=== PATIENT | female | born 1995 | race Caucasian/White ===

== ENCOUNTER 2023-02-16 17:20 | Emergency (ER) | payer BC, SELFPAY ==
--- NOTE | 2023-02-16 17:25 | ED.SKABFB ---
HPI - Skin/Abscess/Foreign Bdy General Chief complaint: Skin/Abscess/Foreign Body Stated complaint: Skin Sore/Left Foot Time Seen by Provider: 02/16/23 17:52 Source: patient and RN notes reviewed Mode of arrival: ambulatory Limitations: no limitations History of Present Illness HPI narrative: 27-year-old female presents with concern for redness, warmth to the foot. Reports she noticed this morning. Reports it is painful to touch. She denies fever, body aches, chills MD complaint: discoloration Related Data Allergies Allergy/AdvReac Type Severity Reaction Status Date / Time buspirone Allergy Severe Vomiting Verified 02/16/23 17:41 guaifenesin [From Robitussin] Allergy Vomiting Verified 02/16/23 17:41 prednisone Allergy Nausea Verified 02/16/23 17:41 Review of Systems Review of Systems: CONSTITUTIONAL: Denies malaise, chills, sweats, or fever. EYES: Denies visual changes, redness, or discharge. CARDIOVASCULAR: Denies chest pain, palpitations, or edema. RESPIRATORY: Denies cough or dyspnea. SKIN: Denies rash or itching. MUSCULOSKELETAL: Reports redness, warmth, tenderness to the left foot NEUROLOGIC: Denies numbness, weakness All systems reviewed & are unremarkable except as noted in HPI and below PMFSH Past Medical History Medical History (Updated 02/16/23 @ 18:00 by Mile Basilio NP) Anemia Anxiety Arthritis Bipolar 1 disorder, depressed Chronic GERD Gastroesophageal reflux disease Migraine Psoriasis Family History Family History Grandparent Hypertension Cerebrovascular accident Other Asthma Carcinoma of colon Social History Social History (Updated 01/29/21 @ 10:02 by Tiffanie Barr CMA) Smoking packs per day: 0.25 Smoking cigarettes per day: 5.0 Years smoked: 6 Smoking pack-years: 1.50 Smoking status: Current every day smoker Alcohol intake: never Substance use: former Comments At time of signature, agree with nursing past medical, surgical, social and family history. There is no relevant family history pertinent to the presenting complaint Exam Narrative: GENERAL: Well-appearing, well-nourished, and in no acute distress. HEAD: Normocephalic, atraumatic. EYES: PERRLA, conjunctivae clear, and EOMI. ENT: Mucous membranes moist. Oropharynx without edema, erythema or lesions. NECK: Supple. No lymphadenopathy CHEST: Clear to auscultation. No respiratory distress. HEART: Regular rate and rhythm. SKIN: Warm, dry. Erythema, tenderness, warmth approximately 9 cm x 3 cm noted to the medial left foot NEURO: Alert and oriented x3. PSYCH: Normal mood and affect Course Course Emergency Course: Patient is aware of diagnosis, understands and agrees to treatment plan. Anticipatory guidance given. Patient agrees to follow-up as directed and is aware of reasons to seek care at the emergency department. Portions of this record may have been created with voice recognition software Level of Care: Express Care Visit Vital Signs Vital signs: Reviewed. MDM - Skin/Abscess/Foreign Bdy MDM Narrative Medical decision making narrative: Does not appear at this time to be erythema multiforme, bullous, SJS, TEN; no evidence at this time to suggest RMSF, NSTI, endocarditis or Lyme disease; patient looks well, nontoxic and is tolerating oral intake; no neurologic signs or symptoms; no headache, photophobia or neck pain; afebrile. Patient does not have history of of penetrating trauma, laceration, blunt trauma, recent surgery, immunosuppression, malignancy, obesity, alcoholism, corticosteroid use. Discussed the importance of follow-up, patient agrees; question, cellulitis versus necrotizing soft tissue infection versus abscess. Lab Data Attestation: I reviewed the patient's lab results. Critical Care Time Critical Care Time Critical Care Time: No Discharge Plan Discharge Clinical Impression: Cellulitis Patient Dispos
[2023-02-16 17:34] VITALS: BP 143/80; PULSE 72; RESP 14; TEMP 36.3; O2SAT 100
== END 2023-02-16 18:05 | disposition home or self-care (01) ==
PROVIDERS: Emergency Provider Nurse Practitioner; PCP Internal Medicine
DX: L03.116 Cellulitis of left lower limb (principal); F17.210 Nicotine dependence, cigarettes, uncomplicated
CPT/HCPCS: 99213; G0463

== ENCOUNTER 2024-03-09 19:28 | Emergency (ER) | payer BC, SELFPAY ==
--- NOTE | 2024-03-09 19:42 | ED.SKABFB ---
HPI - Skin/Abscess/Foreign Bdy General Chief complaint: Wound/Laceration Stated complaint: Leg Sore/Irritation Time Seen by Provider: 03/09/24 19:44 Source: patient and RN notes reviewed Mode of arrival: ambulatory Limitations: dementia History of Present Illness HPI narrative: 28-year-old female presents with concern for redness tenderness, swelling with prelim blisters to the left lower leg. She reports history of poor circulation. She reports she noticed what she thought were blisters 4-5 days ago, and they are now draining with redness, tenderness, swelling. She denies general malaise or fever. MD complaint: other (Redness) Related Data Allergies Allergy/AdvReac Type Severity Reaction Status Date / Time buspirone Allergy Severe Vomiting Verified 03/09/24 19:50 guaifenesin [From Robitussin] Allergy Vomiting Verified 03/09/24 19:50 prednisone Allergy Nausea Verified 03/09/24 19:50 Review of Systems Review of Systems: CONSTITUTIONAL: Denies malaise, chills, sweats, or fever. EYES: Denies redness, or discharge. ENT: Denies rhinorrhea, congestion, swollen lips, swollen tongue CARDIOVASCULAR: Denies chest pain, palpitations, or edema. RESPIRATORY: Denies cough or dyspnea. GASTROINTESTINAL: Denies abdominal pain, nausea, vomiting SKIN: Reports redness, swelling, open skin with purulent discharge to the left lower extremity. Denies bullae, numbness, pain beyond proportion MUSCULOSKELETAL: Denies joint pain or myalgia. NEUROLOGIC: Denies headache. All systems reviewed & are unremarkable except as noted in HPI and below PMFSH Past Medical History Medical History (Updated 03/09/24 @ 19:55 by Mile Basilio NP) Anemia Anxiety Arthritis Bipolar 1 disorder, depressed Chronic GERD Gastroesophageal reflux disease Migraine Psoriasis Family History Family History Grandparent Hypertension Cerebrovascular accident Other Asthma Carcinoma of colon Social History Social History (Updated 01/29/21 @ 10:02 by Tiffanie Barr CMA) Smoking packs per day: 0.25 Smoking cigarettes per day: 5.0 Years smoked: 6 Smoking pack-years: 1.50 Smoking status: Current every day smoker Alcohol intake: never Substance use: former Comments At time of signature, agree with nursing past medical, surgical, social and family history. There is no relevant family history pertinent to the presenting complaint Exam Narrative: GENERAL: Well-appearing, well-nourished, and in no acute distress. HEAD: Normocephalic, atraumatic. EYES: PERRLA, conjunctivae clear ENT: Mucous membranes moist. NECK: Supple. No lymphadenopathy CHEST: Clear to auscultation. No respiratory distress. HEART: Regular rate and rhythm. SKIN: Warm, dry. Approximately 10 x 10 cm Erythema, induration, tenderness, warmth with several areas of open skin with purulent tissue bed noted to the left lower anterior extremity. No vesicles, bullae, necrosis, ecchymosis, crepitus noted. NEURO: Alert and oriented x3. PSYCH: Normal mood and affect Course Course Emergency Course: Patient is aware of diagnosis, understands and agrees to treatment plan. Anticipatory guidance given. Patient agrees to follow-up as directed and is aware of reasons to seek care at the emergency department. Portions of this record may have been created with voice recognition software Level of Care: Express Care Visit Vital Signs Vital signs: Reviewed. MDM - Skin/Abscess/Foreign Bdy MDM Narrative Medical decision making narrative: I evaluated this in the express care. History is obtained from patient who is an independent historian and physical exam was performed.? Available medical records were reviewed. ? Exam findings and relevant testing show no acute concerns or changes; patient is non-toxic appearing and is in no distress. No risk factors or findings concerning for epidural abscess, diskitis, vertebral osteomyel
[2024-03-09 19:51] VITALS: BP 119/83; PULSE 98; RESP 20; TEMP 36.6; O2SAT 97
== END 2024-03-09 20:12 | disposition home or self-care (01) ==
PROVIDERS: Emergency Provider Nurse Practitioner; PCP Internal Medicine
DX: L03.116 Cellulitis of left lower limb (principal); F17.210 Nicotine dependence, cigarettes, uncomplicated; M19.90 Unspecified osteoarthritis, unspecified site; K21.9 Gastro-esophageal reflux disease without esophagitis; L40.9 Psoriasis, unspecified
CPT/HCPCS: 99213; G0463

== ENCOUNTER 2024-06-07 08:15 | Emergency (ER) | payer BC, SELFPAY ==
--- NOTE | 2024-06-07 08:20 | ED_ITS ---
HPI - Skin/Abscess/Foreign Bdy General Chief complaint: Skin/Abscess/Foreign Body Stated complaint: Skin Sore/Foot and Leg Time Seen by Provider: 06/07/24 08:36 Source: patient and RN notes reviewed Mode of arrival: ambulatory Limitations: dementia History of Present Illness HPI narrative: 28-year-old female presents with concern for chronic left lower extremity wounds. Patient has been treated twice for wounds on this leg in the past at this clinic. She reports she was treated in February, the wounds remain scab until recently when the scabs ?fell off? when she took a tightness hands off. She reports since then the wounds have had drainage been open. She reports they are painful. She denies fever, aches, chills, sweats. MD complaint: other (Redness) Related Data Home Medications ?Medication ?Instructions ?Recorded ?Confirmed ?Last Taken ?Type buprenorphine 4 mg-naloxone 1 mg 2 film buccal DAILY 06/07/24 06/07/24 Unknown History sublingual film (Suboxone) Allergies Allergy/AdvReac Type Severity Reaction Status Date / Time buspirone Allergy Severe Vomiting Verified 06/07/24 08:30 guaifenesin (From Robitussin) Allergy Vomiting Verified 06/07/24 08:30 prednisone Allergy Nausea Verified 06/07/24 08:30 Review of Systems Review of Systems: CONSTITUTIONAL: Denies malaise, chills, sweats, or fever. EYES: Denies redness, or discharge. ENT: Denies rhinorrhea, congestion, swollen lips, swollen tongue CARDIOVASCULAR: Denies chest pain, palpitations, or edema. RESPIRATORY: Denies cough or dyspnea. GASTROINTESTINAL: Denies abdominal pain, nausea, vomiting SKIN: Reports redness, swelling, open wounds with yellow drainage to her left lower leg. Denies vesicles, bullae, numbness, pain beyond proportion MUSCULOSKELETAL: Denies joint pain or myalgia. NEUROLOGIC: Denies headache. All systems reviewed & are unremarkable except as noted in HPI and below PMFSH Past Medical History Medical History (Updated 06/07/24 @ 08:45 by Mile Basilio NP) Psoriasis Bipolar 1 disorder, depressed Migraine Chronic GERD Gastroesophageal reflux disease Arthritis Anxiety Anemia Family History Family History Grandparent Hypertension Cerebrovascular accident Other Asthma Carcinoma of colon Social History Social History (Updated 01/29/21 @ 10:02 by Tiffanie Barr [facility]) Smoking packs per day: 0.25 Smoking cigarettes per day: 5.0 Years smoked: 6 Smoking pack-years: 1.50 Smoking status: Current every day smoker Alcohol intake: never Substance use: former Comments At time of signature, agree with nursing past medical, surgical, social and family history. There is no relevant family history pertinent to the presenting complaint Exam Narrative: GENERAL: Well-appearing, well-nourished, and in no acute distress. HEAD: Normocephalic, atraumatic. EYES: PERRLA, conjunctivae clear ENT: Mucous membranes moist. NECK: Supple. No lymphadenopathy CHEST: Clear to auscultation. No respiratory distress. HEART: Regular rate and rhythm. SKIN: Warm, dry. Cutaneous inflammation with chronic edema and venous eczema noted to bilateral lower legs, left lower leg has for stasis ulcers with yellow drainage. No vesicles, bullae, necrosis, ecchymosis, crepitus noted. NEURO: Alert and oriented x3. PSYCH: Normal mood and affect Course Course Emergency Course: Daily Care of the lower legs including wearing compression stockings was discussed with patient, she was advised to follow-up with her primary care provider for ongoing evaluation of her stasis dermatitis and chronic ulcers. Patient is aware of diagnosis, understands and agrees to treatment plan. Anticipatory guidance given. Patient agrees to follow-up as directed and is aware of reasons to seek care at the emergency department. Portions of this record may have been created with voice recognition software Level of Care: Express Care Visit Vital Signs Vital signs: Reviewed. MDM - Skin/Abscess/Foreign Bdy MDM Narrative Medical decision making narrative: I evaluated this in the express care. History is obtained from patient who is an independent historian and physical exam was performed.? Available medical records were reviewed. ? Exam findings and relevant testing show no acute concerns or changes; patient is non-toxic appearing and is in no distress. No risk factors or findings concerning for epidural abscess, diskitis, vertebral osteomyelitis, cord compression, cauda equina, vertebral fracture or bone malignancy, AAA, or pyelonephritis. Patient instructed to consider further imaging and workup through their primary care physician as an outpatient if symptoms persist. Does not appear at this time to be erythema multiforme, bullous, SJS, TEN; no evidence at this time to suggest RMSF, NSTI, endocarditis or Lyme disease; patient looks well, nontoxic and is tolerating oral intake; no neurologic signs or symptoms; no headache, photophobia or neck pain; afebrile.? Patient does not have history of of penetrating trauma, laceration, blunt trauma, recent surgery, immunosuppression, malignancy, obesity, alcoholism, corticosteroid use.? Discussed the importance of follow-up, patient agrees; question, cellulitis versus necrotizing soft tissue infection versus abscess.?? Patient is appropriate for outpatient treatment and follow-up. Critical Care Time Critical Care Time Critical Care Time: No Discharge Plan Discharge Clinical Impression: Stasis leg ulcer Patient Disposition: Home, Self-Care Condition: Stable Instructions: Stasis Dermatitis (ED), Chronic Wounds (ED) Additional Instructions: Please follow up with your Primary Care Doctor within 48-72 hours - call for an appointment. Rest and elevate affected area; apply moist heat 3-4 times daily for 10-15 minutes. Follow instructions included for wound care. Take Motrin 600mg every 8 hours with food for pain. Please take Antibiotics as directed. If you experience any worsening redness, swelling, streaking (red lines), fever or chills please go to the ER Patient Language: Georgian Prescriptions: New sulfamethoxazole-trimethoprim 800-160 mg tablet 1 tablet PO Q12H 7 Days Qty: 14 0RF (DME) compression socks, x-large Misc See Rx Instructions .Route Qty: 2 0RF Rx Instructions: As directed No Action sulfamethoxazole-trimethoprim 800-160 mg tablet 1 tablet PO Q12H 7 Days Qty: 14 0RF buprenorphine-naloxone [Suboxone] 4-1 mg film 2 film buccal DAILY Rx Instructions: place 1 strip/tab under (each) side of tongue rizatriptan 10 mg tablet See Rx Instructions PO .COMPLEX Qty: 30 0RF Rx Instructions: take 1 tab at onset of headache; if no relief may repeat 1 tab after at least 2 hrs; max = 3 tabs/24 hr PO topiramate 25 mg capsule, sprinkle 25 mg PO DAILY Qty: 90 1RF alprazolam 0.25 mg tablet 0.25 mg PO DAILY PRN (Reason: anxiety) Qty: 14 0RF quetiapine 50 mg tablet 100 mg PO QHS Qty: 180 0RF Follow-up/Referrals: Jackson,Brooks Vu APRN [Primary Care Provider] - Time of Disposition: 08:46
[2024-06-07 08:25] VITALS: BP 125/64; PULSE 91; RESP 18; TEMP 36.7; O2SAT 100
== END 2024-06-07 08:50 | disposition home or self-care (01) ==
PROVIDERS: Emergency Provider Nurse Practitioner; PCP Nurse Practitioner
DX: I83.028 Varicose veins of left lower extremity with ulcer other part of lower leg (principal); L97.829 Non-pressure chronic ulcer of other part of left lower leg with unspecified severity; F17.210 Nicotine dependence, cigarettes, uncomplicated; L40.9 Psoriasis, unspecified; K21.9 Gastro-esophageal reflux disease without esophagitis; M19.90 Unspecified osteoarthritis, unspecified site
CPT/HCPCS: 99213; G0463

== ENCOUNTER 2025-04-07 14:47 | Emergency (ER) | payer BC, SELFPAY ==
--- OUTSIDE RECORDS SUMMARY | 2025-03-04 10:00 | XMS_ITS ---
Author Organization [facility] Address [address] [place] [address] Care Team Providers Care Knitter Mechanic Name Role Phone Ck Painting Primary Care Provider Jia Biggs [phone] REASON FOR VISIT MAT F/U Social History Sex Assigned At : Social History Observation Description Sex Assigned At Female Encounters Encounter Location Date Provider Diagnosis [address] [address] 03/04/2025 Jia Biggs Plan Of Treatment No Information Progress Notes * Jordy JOSEPHB:1995 ( 29 yo F)Acc No.[id number]:03/04/2025 UNLOCKED PROGRESS NOTE Patient: Anita MORROW Provider: Silvana Biggs, MSN, POOLROOM/POOLHALL MANAGER, PMHNP-BC :1995 A ge:29 Y S ex:Female Date:03/04/2025 Address:[address] [place], [place] [id number] Pcp:Ck Painting Subjective: * Chief Complaints: * 1 . MAT F/U. * Medical History: Objective: * Vitals: Assessment: Plan: * Treatment: * Care Plan Details* * Electronic signature of Isa Biggs on 04/07/2025 at 02:51 PM EMBEDDED SOFTWARE DESIGN ENGINEER Sign off status: Pending * Provider: Silvana Biggs, MSN, POOLROOM/POOLHALL MANAGER, PMHNP-BC Date: 1 Generated for Printing/Faxing/eTransmitting on: 06/07/2024 02:51 PM EMBEDDED SOFTWARE DESIGN ENGINEER
--- OUTSIDE RECORDS SUMMARY | 2025-03-05 10:00 | XMS_ITS ---
Author Organization [facility] Address [address] [place] [address] Care Team Providers Care Hospitalist Nocturnist Physician Name Role Phone Ck Painting Primary Care Provider Jia Biggs [phone] REASON FOR VISIT r/s from 03/04 Social History Sex Assigned At : Social History Observation Description Sex Assigned At Female Encounters Encounter Location Date Provider Diagnosis [address] [address] 03/05/2025 Jia Biggs Plan Of Treatment No Information Progress Notes * Girish JOSEPHRexB:1995 ( 29 yo F)Acc No.[id number]:03/05/2025 UNLOCKED PROGRESS NOTE Patient: Anita MORROW Provider: Silvana Biggs, MSN, THIRD GRADE TEACHER, PMHNP-BC :1995 A ge:29 Y S ex:Female Date:03/05/2025 Address:[address] [place], [place] [id number] Pcp:Ck Painting Subjective: * Chief Complaints: * 1 . R/s from 03/04. * Medical History: Objective: * Vitals: Assessment: Plan: * Treatment: * Care Plan Details* * Electronic signature of Isa Biggs on 04/07/2025 at 02:52 PM [employer] Sign off status: Pending * Provider: Silvana Biggs, MSN, THIRD GRADE TEACHER, PMHNP-BC Date: 1 Generated for Printing/Faxing/eTransmitting on: 06/07/2024 02:52 PM [employer]
--- NOTE | 2025-04-07 14:49 | ED_ITS ---
HPI - Skin/Abscess/Foreign Bdy General Chief complaint: Skin/Abscess/Foreign Body Stated complaint: Left Leg/Skin Sore Time Seen by Provider: 04/07/25 14:49 Source: patient Mode of arrival: ambulatory Limitations: no limitations History of Present Illness HPI narrative: Anita is a 29 year old female patient presenting to the clinic today with c/o a chronic wound to her left leg. She reports she was last seen for the wound on her leg in May of this year. Was given antibiotics at that time. states she has been seen in the emergency room and has seen a general practitioner one time for the wound. Has redness and swelling to the left lower extremity going up to the upper leg just below the knee. Wound hs very foul odor with a lot of slough tissue. History of IV drug abuse. Has been clean for 6 years. Currently takes Suboxone. Has been applying triple antibiotic ointment to the area Denies any fevers, chills, body aches. Related Data Home Medications ?Medication ?Instructions ?Recorded ?Confirmed ?Last Taken ?Type buprenorphine 4 mg-naloxone 1 mg 2 film buccal DAILY 0 06/07/24 06/07/24 Unknown History sublingual film (Suboxone) buprenorphine 8 mg-naloxone 2 mg film 04/07/25 Unknow n History sublingual film sennosides 8.6 mg tablet (senna) mg 04/07/25 Unknown History Allergies Allergy/AdvReac Type Severity Reaction Status Date / Time buspirone Allergy Severe Vomiting Verified 04/07/25 15:07 guaifenesin (From Robitussin) Allergy Vomiting Verified 04/07/25 15:07 prednisone Allergy Nausea Verified 04/07/25 15:07 Review of Systems Review of Systems: Pertinent positives per HPI. Patient denies any fever, chills, rash, headache, visual changes, dizziness, cough, runny nose, sore throat, shortness of breath, chest pain, palpitations, nausea, vomiting, diarrhea, constipation, abdominal pain, or any urinary issues. COUNT INCLUDES THE [facility] Past Medical History Medical History (Updated 04/07/25 @ 15:21 by Prince Barron APRN) Psoriasis Bipolar 1 disorder, depressed Migraine Chronic GERD Gastroesophageal reflux disease Arthritis Anxiety Anemia Family History Family History Grandparent Hypertension Cerebrovascular accident Other Asthma Carcinoma of colon Social History Social History Smoking packs per day: 0.25 Smoking cigarettes per day: 5.0 Years smoked: 6 Smoking pack-years: 1.50 Alcohol intake: never Substance use: former Comments At the time of my signature, I reviewed and agree with the nursing past medical, surgical, social, and family history. There is no relevant family history pertinent to the patient complaint. Exam Narrative: General: Well-developed, morbidly obese, in no apparent distress Head: Normocephalic, atraumatic. Cardio: Regular rate and rhythm, s1 and s2 normal, no murmur appreciated. Resp: Clear to auscultation bilaterally, no rhonchi, rales, wheezing or rubs. Integumentary: Pratt, warm, and dry, 19 x 14cm unstageable wound to the left anterior/lateral leg. Circumferential cellulitis from the left foot to just below the left knee. Area is erythemic and ttp. Slough tissue over the left wound. Course Course Emergency Course: Portions of this record may have been created with voice recognition software. Level of Care: Express Care Visit Vital Signs Vital signs: Vital signs reviewed Transfer Transfered to: [facility] Transportation: Other (Private car) Transfer rationale: Cellulitis, wound infection, r/o osteomyelitis. Accepting physician: Dr. Gaming Transfer comments: Father to drive. MDM - Skin/Abscess/Foreign Bdy MDM Narrative Medical decision making narrative: At the time of visit patient is resting in the examine chair. Patient appears to be nontoxic. C/o a chronic wound to her left leg. She reports she was last seen for the wound on her leg in May of this year. Was given antibiotics at that time. states she has been seen in the emergency room and has seen a general practitioner one time for the wound. Has redness and swelling to the left lower extremity going up to the upper leg just below the knee. Wound has very foul odor with a lot of slough tissue. History of IV drug abuse. Has been clean for 6 years. Currently takes Suboxone. Denies any fevers, chills, body aches. On exam patient has a [id number] unstageable wound to the left anterior/lateral leg. Circumferential cellulitis from the left foot to just below the knee. Area is erythemic and ttp. Slough tissue over the left wound. Plan: I recommend transfer to the ED for further evaluation for cellulitis, wound infection, possible osteomyelitis. Risk and benefits were discussed with the patient and she agrees to transfer to the ED. Patient would like to go to [facility] ER. Report was called to Radha REID for continuity of care. Dr. Gaming accepts patient for transfer. Patient father to take patient to the ED. Differential Diagnosis Differential diagnosis: Likely abscess of skin or subcutaneous tissue, cellulitis and other (Unstageable wound, osteomyelitis, sepsis, drug abuse) Discharge Plan Discharge Clinical Impression: Cellulitis of left leg, Leg wound, left Patient Disposition: Acute Care Hospital Condition: Stable Patient Language: Sami Prescriptions: No Action buprenorphine-naloxone [Suboxone] 4-1 mg film 2 film buccal DAILY Rx Instructions: place 1 strip/tab under (each) side of tongue (DME) compression socks, x-large Misc See Rx Instructions .Route Qty: 2 0RF Rx Instructions: As directed sennosides [senna] 8.6 mg tablet buprenorphine-naloxone 8-2 mg film rizatriptan 10 mg tablet See Rx Instructions PO .COMPLEX Qty: 30 0RF Rx Instructions: take 1 tab at onset of headache; if no relief may repeat 1 tab after at least 2 hrs; max = 3 tabs/24 hr PO topiramate 25 mg capsule, sprinkle 25 mg PO DAILY Qty: 90 1RF alprazolam 0.25 mg tablet 0.25 mg PO DAILY PRN (Reason: anxiety) Qty: 14 0RF quetiapine 50 mg tablet 100 mg PO QHS Qty: 180 0RF Follow-up/Referrals: UNKNOWN,DOCTOR [Non-Staff] Time of Disposition: 15:21 Quality NIHSS Nursing Documentation ED NIHSS nursing documentation: reviewed/agree
[2025-04-07 14:52] VITALS: BP 147/74; PULSE 80; RESP 18; TEMP 36.3; O2SAT 100
--- OUTSIDE RECORDS SUMMARY | 2025-04-07 14:52 | XMS_ITS | Clinical Summary ---
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 Indications: mood stabalizer Active hydrOXYzine (VISTARIL) 25 MG Capsule Take 1 Cap by mouth 3 times daily as needed for Anxiety. 20 Cap 8 Active Active Problems Problem Noted Date Diagnosed Date Polyarthralgia Pain in unspecified joint 016 Bipolar affective disorder 02/16/2016 Dysthymia 02/16/2016 Menometrorrhagia 02/16/2016 Social History Tobacco Use Types Packs/Day Years Used Date Smoking Tobacco: Every Day Cigarettes Smokeless Tobacco: Never Tobacco Cessation:Ready to Q uit: No; Counseling Given: Yes Alcohol Use Standard Drinks/Week Comments No 0 (1 standard drink = 0.6 oz pur e alcohol) Comments No Sex and Gender Information Value Date Recorded Sex Assigned at Not on file Legal Sex Female 12:25 AM CDT Gender Identity Not on file Sexual Orientation Not on file Last Filed Vital Signs Vital Sign Reading Time Taken Comments 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 Pulse 108 02/16/2016 2:20 PM CDT Temperature 37.1 C (98.8 F) 02/16/2016 2:20 PM CDT Respiratory Rate 18 02/16/2016 2:20 PM CDT Oxygen Saturation 98% 02/16/2016 2:20 PM CDT Inhaled Oxygen Concentration - - Weight 115.7 kg (255 lb) 02/16/2016 2:20 PM CDT Height 177.8 cm (5' 10) 02/16/2016 2:20 PM CDT Body Mass Index 36.59 02/16/2016 2:20 PM CDT Plan of Treatment Health Maintenance Due Date Last Done Comments Hepatitis C Virus (HCV) Screening 1994 TdaP Immunization 1994 Hepatitis B Immunization (1 of 3 - 19+ 3-dose series) 2013 Pap Smear 2015 Human Papillomavirus (HPV) Immunization (1 - 3-dose SCDM series) 2021 Cervical Cancer Screening (CCS) 2024 HPV/Cotest 2024 Influenza Immunization (#1) 2025 SARS-COV-2 Immunization (2024- season) 2025 Respiratory Syncytial Virus (RSV) Immunization (Adult) (1 - 1-dose 75+ series) 2069 Meningococcal Immunization (ACWY) Aged Out No longer eligible based on patient's age to complete this topic Pneumococcal Immunization Combined Aged Out No longer eligible based on patient's age to complete this topic Rotavirus Immunization Aged Out No lo nger eligible based on patient's age to complete this topic Care Teams Clicking Machine Operator Relationship Specialty Start Date End Date Provider, None [place] PCP - General 05/06/18
--- OUTSIDE RECORDS SUMMARY | 2025-04-07 14:52 | XMS_ITS | Clinical Summary ---
Author Organization [facility] Address [address] [place] [id number] Care Team Providers Care Sectionizer Name Role Phone Ck Painting MD Primary Care Provider [phone] Allergies No known active allergies Medications cyclobenzaprine (FLEXERIL) 10 mg tablet Take 1 tablet (10 mg total) by mouth every 8 (eight) hours as needed for muscle spasms. 12 tablet 9 Active ibuprofen (ADVIL,MOTRIN) 800 mg tablet Take 1 tablet (800 mg total) by mouth 3 (three) times a day. 21 tablet 9 Active buprenorphine-n aloxone (SUBOXONE) 8-[address] 1 Film under the tongue 2 (two) times a day for 4 days 8 Film 2 Active naloxone (NARCAN) 4 mg/actuation spray,non-aeros ol Administer 1 spray into affected nostril(s) as needed for opioid reversal Call 911. Administer a single spray in one nostril. Repeat every 3 minutes as needed if no or minimal response. 2 each 2 Active buprenorphine-n aloxone (SUBOXONE) 8-[address] 1 Film under the tongue daily for 6 doses 6 Film 3 Active Social History Tobacco Use Types Packs/Day Years Used Date Smoking Tobacco: Never Assessed Personal Safety Answer Date Recorded Have you ever been in or are you currently in a harmful physical or emotional relationship or is someone making you feel afraid or unsafe? 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 Gender Identity Not on file Sexual Orientation Not on file Last Filed Vital Signs Vital Sign Reading Time Taken Comments Blood Pressure 135/92 02/11/2023 2:24 PM CDT Pulse 76 02/11/2023 2:24 PM CDT Temperature 36.7 C (98.1 F) 02/11/2023 2:24 PM CDT Respiratory Rate 20 02/11/2023 2:24 PM CDT Oxygen Saturation 99% 02/11/2023 2:24 PM CDT Inhaled Oxygen Concentration - - Weight 158.8 kg (350 lb) 02/11/2023 12:11 PM CDT Height 180.3 cm (5' 11) 02/11/2023 12:11 PM CDT Body Mass Index 48.82 02/11/2023 12:11 PM CDT Plan of Treatment Health Maintenance Due Date Last Done Comments Cervical Cancer Screening 1994 Depression Screening 1994 Hepatitis C Screening 1994 Varicella Vaccines (2 of 2 - 2-dose childhood series) 1998 01/24/1998 Regular Well Visit/Exam 18-64 2012 DTaP/Tdap/Td Vaccine (7 - Td or Tdap) 01/06/2019 01/06/2009, 12/23/1998, 10/05/1995, Additional history exists Influenza Vaccine (#1) 2025 03/12/2010, 2009 Hepatitis B Screening Completed 1994 , 1994, 1994 HPV Vaccines Completed 08/07/2009, 02/27, 01/06/2009 Pneumococcal vaccine <65 Aged Out No longer eligible based on patient's age to complete this topic Insurance [facility] CHO[facility] PLUS [facility] Care Teams Sectionizer Relationship Specialty Start Date End Date Ck Painting MD [address] [place] [address] PCP - General Internal Medicine 02/11/23
--- OUTSIDE RECORDS SUMMARY | 2025-04-07 14:52 | XMS_ITS | Patient Health Record ---
Author Organization [facility]ly [facility], [facility] Address [address] [place] [address] Care Team Providers Care Park Worker Name Role Phone Painting Ck Primary Care Provider Alexandr Camacho Unavailable [phone] Brooks Paz Unavailable [phone] Rema Paulino Unavailable [phone] Nicole Rodriguez Unavailable Jia Biggs Unavailable [phone] Allergies Allergen (clinical drug ingredient) Drug/Non Drug Allergy documented on EMR Reaction Allergy Type Onset Date Status prednisone PredniSONE (Gurjit) nausea and vomiting Drug Allergy Active Results Component Value Reference Range Notes 12 Panel Urine Drug Screen Reviewed date:04/20/2024 10:05:14 AM Interpretation: Performing Lab: Notes/Report: THC POS NEYDA neg MOP (OPI) neg AMP neg MET neg BAR neg BZO neg MDMA neg MTD neg OXY neg PCP neg BUP POS 12 Panel Urine Drug Screen Reviewed date:07/19/2024 09:45:36 AM Interpretation: Performing Lab: Notes/Report: THC POS NEYDA neg MOP (OPI) neg AMP neg MET neg BAR neg BZO neg MDMA neg MTD neg OXY neg PCP neg BUP POS Medication Assisted Treatmen t (MAT) Buprenorphine, Norbuprenorphine, and Naloxone MS Confirmation, Urine Reviewed date:07/24/2024 08:29:03 AM Interpretation: Performing Lab:[facility], [address] [facility], Phone - [phone], Director - Radha Notes/Report: Creatinine 230 REFERENCE RANGE : Ref Range>=20 BUPRENORPHINE ++POSITIVE++ Buprenorphine 220 Norbuprenorphine >435 N/B Ratio >1.97 >=0.3 OPIATE ANTAGONIST ++POSITIVE++ Naloxone 98 Testing Threshold: buprenorphine, 1.0 ng/mL norbuprenorphine, 5.0 ng/mL naloxone, 10 ng/mL This test was developed and its performance characteristics determined by [facility]. It has not been cleared or approved by the Food and Drug Administration. 12 Panel Urine Drug Screen Reviewed date:06/06/2024 01:28:52 PM Interpretation: Performing Lab: Notes/Report: THC POS NEYDA neg MOP (OPI) neg AMP neg MET neg BAR neg BZO neg MDMA neg MTD neg OXY neg PCP neg BUP POS 12 Panel Urine Drug Screen Reviewed date:09/14/2024 10:10:18 AM Interpretation: Performing Lab: Notes/Report: THC POS NEYDA neg MOP (OPI) neg AMP neg MET neg BAR neg BZO neg MDMA neg MTD neg OXY neg PCP neg BUP POS 12 Panel Urine Drug Screen Reviewed date:10/23/2024 09:35:45 AM Interpretation: Performing Lab: Notes/Report: THC POS NEYDA neg MOP (OPI) neg AMP neg MET neg BAR neg BZO neg MDMA neg MTD neg OXY neg PCP neg BUP POS 14 Panel Urine Drug Screen Reviewed date:03/06/2025 01:28:03 PM Interpretation: Performing Lab: Notes/Report: THC neg NEYDA neg MOP (OPI) neg AMP neg MET neg BAR neg BZO neg MDMA neg MTD neg OXY neg PCP neg BUP POS TCA neg FTY neg 14 Panel Urine Drug Screen Reviewed date:12/21/2024 09:39:45 AM Interpretation: Performing Lab: Notes/Report: THC POS NEYDA neg MOP (OPI) neg AMP neg MET neg BAR neg BZO neg MDMA neg MTD neg OXY neg PCP neg BUP POS TCA neg FTY neg 14 Panel Urine Drug Screen Reviewed date:01/11/2025 01:56:36 PM Interpretation: Performing Lab: Notes/Report: THC neg NEYDA neg MOP (OPI) neg AMP neg MET neg BAR neg BZO neg MDMA neg MTD neg OXY neg PCP neg BUP POS TCA neg FTY neg Medication Assisted Treatmen t (MAT) Buprenorphine, Norbuprenorphine, and Naloxone MS Confirmation, Urine Reviewed date:12/27/2024 10:05:51 AM Interpretation: Performing Lab:[facility], [address] [place] [address], Phone - [phone], Director - PhrNazia Notes/Report: Creatinine 106 >=20 mg/dL REFERENCE RANGE : Ref Range>=20 BUPRENORPHINE ++POSITIVE++ Buprenorphine 119 Norbuprenorphine 571 N/B Ratio 4.80 >=0.3 OPIATE ANTAGONIST ++POSITIVE++ Naloxone 251 Testing Threshold: buprenorphine, 1.0 ng/mL norbuprenorphine, 5.0 ng/mL naloxone, 10 ng/mL This test was developed and its performance characteristics determined by [facility]. It has not been cleared or approved by the Food and Drug Administration. Reason For Referral No Information Medications Medication SIG (Take, Route, Frequency, Duration) Notes Start Date End Date Status Senna 8.6 MG 2 tablets at bedtime as needed Orally Once a day; Duration: 30 days As needed for constipation Active Calcipotriene 0.005 % 1 application Exte rnally Twice a day 05/19/2023 Active Suboxone 8-2 MG 1 film under the ton panda and allow to dissolve Sublingual three times a day 03/06/2025 Active Debrox 6.5 % 5 drops into affecte d ear UNTIL WAX RESOLVES Otic Twice a ay 04/21/2022 Active Ondansetron 4 MG 1 tablet on the tongue and allow to dissolve Orally Once a day As needed for nausea Active QUEtiapine Fumarate 300 MG 1 tablet Orally daily; Duration: 30 days at bedtime Active Ibuprofen 600 MG 1 tablet with food o r milk as needed Orally Three times a day Active Clobetasol Propionate 0.05 % 1 application TO RASH ON SCALP Externally Twice a day As needed Active Social History Tobacco Use: Social History Observation Description Date Details (start date - stop date) Current Smoker NA - NA Sex Assigned At : Social History Observation Description Sex Assigned At Female Alcohol Screen (Audit-C) Question Answer Notes Did you have a drink contain ing alcohol in the past year? Yes How often did you have a dri nk containing alcohol in the past year? Monthly or less (1 point) How many drinks did you have on a typical day when you were drinking in the past year? 3 or 4 drinks (1 point) How often did you have 6 or more drinks on one occasion in the past year? Less than monthly (1 point) Points 3 Interpretation Positive PRAPARE Question Answer Notes Date Completed/Updated: 01/27/2024 What is your current housing situation? I have h ousing Are you worried about losing your housing? No What is the highest level of school that you have finished? More than high school What is your current work situation? Unemployed and seeking work In the past year, have you o r any family members you live with been unable to get any of the following when it was really needed? Check all that apply I do not have problems meeting my needs Has lack of transportation k ept you from medical appointments, meetings, work or from getting things needed for daily living? Yes, it has kept me from medical appointments or from getting my medications,Yes, it has kept me from non-medical meetings, appointments, work, or getting things needed for daily living How often do you see or talk to people that you care about and feel close to? (For example: talking to friends on the phone, visiting friends or family, going to scientologist or club meetings) More than 5 times a week How stressed are you? Stress is when someone feels tense, nervous, anxious, or can\t sleep at night because their mind is troubled Somewhat In the past year have you sp ent more than 2 nights in a row in a intermediate, long-term, fdc center, or juvenile correctional facility? No Are you a refugee? No What country are you from? [place] Do you feel physically and e motionally safe where you currently live? Yes In the past year, have you b een afraid of your partner or ex-partner? No PRAPARE Score: 6 Tobacco Control (Standard) Question Answer Notes Tobacco use: Current smoker Problems Problem Type SNOMED Code ICD Code Onset Dates Problem Status W/U Status Risk Notes Problem Morbid obesity (disorder) (121963064) Morbid (severe) obesity due to excess calories (E66.01) Active confirmed Problem Vitamin D deficiency (26655722) Vitamin D deficiency (E55.9) Active confirmed Problem Psoriasis (2791103) Psoriasis (L40.9) Active co nfirmed Problem Overweight (898937751) Over weight (E66.3) Active confirmed Problem Chronic fatigue syndrome (28841337) Chronic fatigue (R53.82) Active confirmed Problem Insomnia (225249187) Insomnia, unspecified type (G47.00) Active confirmed Problem Bipolar disorder (56581681) Bipolar affective disorder, remission status unspecified (F31.9) Active confirmed Problem Opioid use disorder (7569164460) Opioid use disorder (F11.99) Active confirmed Problem Tobacco user (944405606) Nicotine dependence with current use (F17.200) Active confirmed Problem Gastroesophageal reflux disease (597269303) Gastroesophageal reflux disease, unspecified whether esophagitis present (K21.9) Active confirmed Vital Signs Heart Rate 89 /min 03/06/2025 Temperature 98.2 degrees Fahrenheit 12/21/2024 Respiratory Rate 16 /min 03/06/2025 Oximetry 98 % 03/06/2025 Blood pressure diastolic 84 mm Hg 03/06/2025 Height 71in in 03/06/2025 Blood pressure systolic 122 mm Hg 03/06/2025 Weight 307.6lbs lbs 03/06/2025 BMI 42.9 kg/m2 03/06/2025 Encounters Encounter Location Date Provider Diagnosis [address] [place] [address] 04/20/2024 Brooks Paz Opioid use disorder F11.99 ; Bipolar affective disorder, remission status unspecified F31.9 ; Arthralgia M25.50 ; Morbid (severe) obesity due to excess calories E66.01 ; Nutritional counseling Z71.3 and Nicotine dependence, unspecified, uncomplicated F17.[address] [place] [address] 06/06/2024 Jia Biggs Opioid use disorder F11.[address] [place] [address] 07/19/2024 Jia Szlufik Opioid use disorder F11.[address] [place] [address] 09/14/2024 Alexandr Camacho Opioid use disorder F11.99 ; Morbid (severe) obesity due to excess calories E66.01 and Nicotine dependence with current use F17.[address] [place] [address] 10/23/2024 Jia Szlufibharath Opioid use disorder F11.99 and Over weight E66.[address] [place] [address] 12/21/2024 Jia Szlufibharath Opioid use disorder F11.99 and Over weight E66.3 [facility] [address] [place] [address] 01/11/2025 Nicole Rodriguez Opioid use disorder F11.[address] [place] [address] 03/06/2025 Jia Monzonlufik Opioid use disorder F11.99 ; Encounter for immunization Z23 and Over weight E66.[address] [place] [address] 04/09/2024 Ck Painting Opioid use disorder F11.[address] [place] [address] 05/24/2024 Brooks Paz Opioid use disorder F11.[address] [place] [address] 07/09/2024 Jia Biggs Opioid use disorder F11.99 [facility] [address] [place] [address] 08/24/2024 Jia Monzonlufik Opioid use disorder F11.99 [facility] [address], [place] [address] 10/09/2024 Ck Painitng Bipolar affective disorder, remission status unspecified F31.[address] [place] [address] 11/23/2024 Rema Paulino Opioid use disorder F11.[address] [place] [address] 02/27/2025 Jia Biggs Assessments Encounter Date Diagnosis (ICD Code) Assessment Notes Treatment Notes Treatment Clinical Notes Section Notes 04/09/2024 Opioid use disorder (ICD-10 - F11.99) 04/20/2024 Opioid use disorder (ICD-10 - F11.99) 05/24/2024 Opioid use disorder (ICD-10 - F11.99) 06/06/2024 Opioid use disorder (ICD-10 - F11.99) 07/09/2024 Opioid use disorder (ICD-10 - F11.99) 07/19/2024 Opioid use disorder (ICD-10 - F11.99) 08/24/2024 Opioid use disorder (ICD-10 - F11.99) 09/14/2024 Morbid (severe) obesity due to excess calories (ICD-10 - E66.01) 09/14/2024 Opioid use disorder (ICD-10 - F11.99) 10/09/2024 Bipolar affective disorder, remission status unspecified (ICD-10 - F31.9) 10/23/2024 Over weight (ICD-10 - E66.3) 10/23/2024 Opioid use disorder (ICD-10 - F11.99) 11/23/2024 Opioid use disorder (ICD-10 - F11.99) 12/21/2024 Over weight (ICD-10 - E66.3) 12/21/2024 Opioid use disorder (ICD-10 - F11.99) Inconsistent follow-up with monthly fills, frequent bridge fills *Increase frequency of in-person follow-up a this time 01/11/2025 Opioid use disorder (ICD-10 - F11.99) 03/06/2025 Encounter for immunization (ICD-10 - Z23) Ordered per standing orders for administering influenza vaccine to adults. 04/20/2024 Bipolar affective disorder, remission status unspecified (ICD-10 - F31.9) 03/06/2025 Opioid use disorder (ICD-10 - F11.99) 04/20/2024 Arthralgia (ICD-10 - M25.50) 03/06/2025 Over weight (ICD-10 - E66.3) 09/14/2024 Nicotine dependence with current use (ICD-10 - F17.200) 04/20/2024 Morbid (severe) obesity due to excess calories (ICD-10 - E66.01) 04/20/2024 Nutritional counseling (ICD-10 - Z71.3) 04/20/2024 Nicotine dependence, unspecified, uncomplicated (ICD-10 - F17.200) 06/06/2024 Other Patient agrees to take medication as prescribed. Discussed medication side effects, adverse effects, risks, benefits, as well as interactions. Encouraged non-use of opioids and other illicit substances. Has naloxone. Discontinuing buprenorphine increases the risk of overdose upon return to illicit opioid use. Use of alcohol or benzodiazepines with buprenorphine increases the risk of overdose and . Education provided about safe storage of medications. Encouraged participation in recovery groups/counseling services. Contact office with questions or concerns. 07/19/2024 Other Patient agrees to take medication as prescribed. Discussed medication side effects, adverse effects, risks, benefits, as well as interactions. Encouraged non-use of opioids and other illicit substances. Has naloxone. Discontinuing buprenorphine increases the risk of overdose upon return to illicit opioid use. Use of alcohol or benzodiazepines with buprenorphine increases the risk of overdose and . Education provided about safe storage of medications. Encouraged participation in recovery groups/counseling services. Contact office with questions or concerns. 09/14/2024 Other Discussed medication side effects, adverse effects, risks, benefits, as well as interactions. Encouraged non-use of opioids. Has naloxone. Recommended participation in recovery groups and/or counseling services. May contact office with questions or concerns. Patient may self-administer their own medications or may self-administer their own oral medications per [facility] Protocol. 10/23/2024 Other Patient agrees to take medication as prescribed. Discussed medication side effects, adverse effects, risks, benefits, as well as interactions. Encouraged non-use of opioids and other illicit substances. Has naloxone. Discontinuing buprenorphine increases the risk of overdose upon return to illicit opioid use. Use of alcohol or benzodiazepines with buprenorphine increases the risk of overdose and . Education provided about safe storage of medications. Encouraged participation in recovery groups/counseling services. Contact office with questions or concerns. Patient may self-administer their own medications or may self-administer their own oral medications per [facility] Protocol. 12/21/2024 Other Patient agrees to take medication as prescribed. Discussed medication side effects, adverse effects, risks, benefits, as well as interactions. Encouraged non-use of opioids and other illicit substances. Has naloxone. Discontinuing buprenorphine increases the risk of overdose upon return to illicit opioid use. Use of alcohol or benzodiazepines with buprenorphine increases the risk of overdose and . Education provided about safe storage of medications. Encouraged participation in recovery groups/counseling services. Contact office with questions or concerns. Patient may self-administer their own medications or may self-administer their own oral medications per [facility] Protocol. 01/11/2025 Other Patient agrees to take medication as prescribed. Discussed medication side effects, adverse effects, risks, benefits, as well as interactions. Encouraged non-use of opioids. Encouraged participation in recovery groups. Patient may contact office with questions or concerns. Patient agrees to take medication as prescribed. Discussed medication side effects, adverse effects, risks, benefits, as well as interactions. Encouraged non-use of opioids. Encouraged participation in recovery groups. Patient may contact office with questions or concerns. 03/06/2025 Other Patient will contact insurance to check medical transportation benefits Patient agrees to take medication as prescribed. Discussed medication side effects, adverse effects, risks, benefits, as well as interactions. Encouraged non-use of opioids and other illicit substances. Has naloxone. Discontinuing buprenorphine increases the risk of overdose upon return to illicit opioid use. Use of alcohol or benzodiazepines with buprenorphine increases the risk of overdose and . Education provided about safe storage of medications. Encouraged participation in recovery groups/counseling services. Contact office with questions or concerns. Patient may self-administer their own medications or may self-administer their own oral medications per [facility] Protocol. Plan Of Treatment Future Test Test Name Order Date Stool Culture 05/21/2022 HIV Screen *HIV 1, 2 Ab, p24 Ag ([id number]) 05/21/2022 Clostridium difficile Toxins A+B, EIA Vitamin B12 and Folate 05/21/2022 Iron and TIBC* 05/21/2022 CBC With Differential/Platelet* 05/21/20 Ova + Parasite Exam 05/21/2022 Vitamin D, 25-Hydroxy* 05/21/2022 Hepatitis C Virus Antibody w/Rflx to Valente ntitative Real-time PCR ([id number]) 05/21/2022 CMP 14 Comprehensive Metabolic Panel* TSH Rfx on Abnormal to Free T4 2 Insurance Providers Payer Name Payer Address Payer Phone Subscriber Number Group Number Insured Name Patient Relationship to Insured Coverage Start Date Coverage End Date [facility] [address] [place] [address] [phone] [id number] Antia Joseph Self - patient is the insured 1 [facility] [address] [place] [address] [id number] Anita Joseph Self - patient is the insured 2 Medical (General) History Medical History History ICD Code OUD Surgical History Surgery Date(Month/Year) Hand surgery at age of 3 Hospitalization History Reason Date(Month/Year)
--- OUTSIDE RECORDS SUMMARY | 2025-04-07 14:52 | XMS_ITS | Clinical Summary ---
Author Organization [facility] Address [address] 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 This disclosure is being madepursuant to the Care Everywhere program and may not contain all information available regarding this patient. 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 Gender Identity Not on file Sexual Orientation Not on file Last Filed Vital Signs Vital Sign Reading Time Taken Comments Blood Pressure 110/70 09/11/2013 12:40 PM CDT Pulse 84 09/11/2013 12:40 PM CDT Temperature - - Respiratory Rate 18 06/26/2013 10:08 AM HSE COORDINATOR Oxygen Saturation - - Inhaled Oxygen Concentration - - Weight 117 kg (258 lb) 09/11/2013 12:40 PM CDT Height 176.5 cm (5' 9.5) 09/11/2013 12:40 PM CD T Body Mass Index 37.55 09/11/2013 12:40 PM CDT Plan of Treatment Health Maintenance Due Date Last Done Comments DTAP/TDAP/TD VACCINES (1 - Tdap) 2013 HEPATITIS B VACCINE (1 of 3 - 19+ 3-dose series) 2013 HPV VACCINE (1 - 3-dose SCDM series) 2021 DEPRESSION SCREENING 05/30/2024 COVID-19 VACCINE ( - 2023-2 5 season) 2025 INFLUENZA VACCINE (#1) 2025 ZOSTER VACCINE (1 of 2) 2044 HEPATITIS C SCREENING Completed 09/04/2013 HIV SCREENING Completed 09/04/2013 HIB VACCINE Aged Out No longer eligi ble based on patient's age to complete this topic MENINGOCOCCAL (Group B) VACC INE SHARED DECISION-MAKING Aged Out No longer eligibl e based on patient's age to complete this topic MENINGOCOCCAL GROUPS A/C/Y/W VACCINE Aged Out No longer eligible b ased on patient's age to complete this topic PNEUMOCOCCAL VACCINE Aged Out No long er eligible based on patient's age to complete this topic Procedures Procedure Name Priority Date/Time Associated Diagnosis Comments HEPATITIS C ANTIBODY Routine 09/04/2013 1:28 PM CDT HIV-1 HIV-2 ANTIBODIES W RFLX REFLEXED Routine 09/04/2013 1:28 PM CDT from Last 3 Months or Most Recently Relevant to Health Maintenance Results * HIV-1 HIV-2 ANTIBODIES W RFLX REFLEXED (09/04/2013 1:28 PM CDT) [facility] HIV 1/2 EIA Antibody NON-REACT DOM NON-REACT DOM [facility] Comment: A Nonreactive HIV-1/2 antibody result does not exclude HIV infection since the time frame for seroconversion is variable. If acute HIV infection is suspected, antibody retesting and nucleic acid amplification (HIV DNA/RNA) testing is recommended. Effective September 24, 2013, [employer] will discontinue the HIV-1 Western Blot confirmation and replace it with an HIV-1/HIV-2 differentiation assay. This assay exhibits increased sensitivity over the HIV-1 Western Blot test and simultaneously differentiates HIV-1 antibody reactivity from HIV-2 antibody reactivity. Test Performed at: [facility] [id number] [place] [address] RAIZA HULL DO,MPH 09/04/2013 1:28 PM CDT 09/04/2013 1:36 PM CDT Audra Zepeda MD LAB - CHEMISTRY ORDERABLES Final Result Performing Organization Address City/[facility]/ZIP Co de Phone Number [facility] ([facility]) [id number] * HEPATITIS C ANTIBODY (09/04/2013 1:28 PM CDT) Hepatitis C Antibody NON-REACTI VE NON-REACT DOM [facility]) Signal/Cutoff 0.02 <1.00 [facility]) Comment: Test Performed at: [facility] [id number] RAIZA HULL DO,MPH 09/04/2013 1:28 PM CDT 09/04/2013 1:36 PM CDT Audra Zepeda MD LAB - CHEMISTRY ORDERABLES Final Result Performing Organization Address [facility] Co de Phone Number [facility] ([facility]) [phone] [place] [address] from Last 3 Months or Most Recently Relevant to Health Maintenance Insurance Care Teams Anode Rebuilder Relationship Specialty Start Date End Date Esme Benites MD [address] [place] [address] [place] [id number] PCP - General 05/26/18
--- OUTSIDE RECORDS SUMMARY | 2025-04-07 14:52 | XMS_ITS | Clinical Summary ---
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 Gender Identity Not on file Sexual Orientation Not on file Plan of Treatment Health Maintenance Due Date Last Done Comments Cervical Cancer Screening Pa p Smear (Age 30 to 64) Every 3 Years 1994 Annual Physical 1997 Hepatitis C 2012 DTaP, Tdap and Td Vaccines ( 1 - Tdap) 2013 Hepatitis B Vaccines (1 of 3 - 19+ 3-dose series) 2013 HPV Vaccines (1 - 3-dose SCD M series) 2021 Cervical Cancer Screening Pa p with HPV Testing (Age 30 to 64) Every 5 Years 2024 Cervical Cancer Screening with HPV 2024 COVID-19 Vaccine ( - 2024-2 6 season) 2025 Influenza Adult (#1) 2025 Hepatitis A Vaccines Aged Out No long er eligible based on patient's age to complete this topic Meningococcal B Vaccine Aged Out No l onger eligible based on patient's age to complete this topic Meningococcal Vaccine Aged Out No jocelyn chip eligible based on patient's age to complete this topic Pneumococcal Vaccine: Pediat rics (0 to 5 Years) and At-Risk Patients (6 to 49 Years) Aged Out No longer eligible b ased on patient's age to complete this topic RSV Immunizations Under 20 Months Aged Out No longer eligible based on patient's age to complete this topic
== END 2025-04-07 15:21 | disposition short-term general hospital (02) ==
PROVIDERS: Emergency Provider Nurse Practitioner Family
DX: S81.802A Unspecified open wound, left lower leg, initial encounter (principal); L03.116 Cellulitis of left lower limb; X58.XXXA Exposure to other specified factors, initial encounter; F17.210 Nicotine dependence, cigarettes, uncomplicated; K21.9 Gastro-esophageal reflux disease without esophagitis; M19.90 Unspecified osteoarthritis, unspecified site; L40.9 Psoriasis, unspecified; F41.9 Anxiety disorder, unspecified; F31.9 Bipolar disorder, unspecified
CPT/HCPCS: 99212; G0463